=== PATIENT | male | born 1975 | race Hispanic/Latino ===

== ENCOUNTER → 2023-08-06 06:21 | Outpatient (REF) | payer OTHER, SELFPAY ==
[2023-08-06 11:02] LABS: ALT (SGPT) 89 U/L (0-50); AST (SGOT) 51 U/L (17-59); Albumin 4.2 g/dl (3.5-5.0); Alkaline Phosphatase 120 U/L (38-126); Blood Urea Nitrogen 19 mg/dl (9-20); Calcium 9.4 mg/dl (8.4-10.2); Carbon Dioxide 28 mmol/L (22-30); Chloride 104 mmol/L (98-107); Glucose 126 mg/dl (70-99); HDL Cholesterol 30 mg/dl; LDL Cholesterol, Calculated 96 mg/dl; Sodium 138 mmol/L (135-145); Total Bilirubin 0.8 mg/dl (0.2-1.3); Total Cholesterol 194 mg/dl (50-199); Total Protein 7.4 g/dl (6.3-8.2); Triglyceride 341 mg/dl (10-149); Very Low Density Lipoprotein 68 mg/dl (0-30); eGFR > 60.00
[2023-08-06 11:04] LABS: Urine Albumin Negative (Neg - Trace); Urine Bilirubin Negative (Negative); Urine Character Clear (Clear); Urine Color Yellow; Urine Glucose Negative (Negative); Urine Ketone Negative (Negative); Urine Leukocyte Negative (Negative); Urine Nitrite Negative (Negative); Urine Occult Blood Negative (Negative); Urine Urobilinogen Negative (Neg - 1+)
[2023-08-06 11:14] LABS: % Basophils 0.5 % (0-2); % Eosinophils 1.8 % (0-6); % Immature Granulocytes 0.3 % (0-0.5); % Lymphocytes 37.5 % (20.5-51.1); % Monocytes 7.9 % (1.7-9.3); Absolute Basophils 0.1 10^3/uL (0-0.2); Absolute Eosinophils 0.2 10^3/uL (0-0.7); Absolute Lymphocytes 4.8 10^3/uL (1.2-3.4); Absolute Neutrophils 6.6 10^3/uL (1.4-6.5); Hematocrit 51.7 % (39.0-52.0); Hemoglobin 17.3 g/dL (13.0-18.0); Mean Corp Hgb Conc. 33.5 g/dL (33.0-37.0); Mean Corpuscular Hgb 29.3 pg (27.0-31.0); Mean Corpuscular Volume 87.5 fL (80.0-94.0); Mean Platelet Volume 12.5 fL (7.4-10.4); Nucleated Red Blood Cells % 0 % (-); Platelet Count 224 10^3/uL (130-400); Red Blood Cell Count 5.91 10^6/uL (4.70-6.10); Red Cell Dist. Width 12.8 % (11.5-14.5); Reticulocyte Count 1.9 % (0.4-2.8); White Blood Cell Count 12.8 10^3/uL (4.8-10.8)
[2023-08-06 11:15] LABS: Potassium 4.1 mmol/L (3.5-5.1)
[2023-08-06 13:58] LABS: Glycohemoglobin (HgbA1c) 6.9 % (4.0-5.6)
[2023-08-10 19:22] LABS: FIT-Fecal Occult Blood Interp Negative
== END ==
LOC: CLINIC 06:21
PROVIDERS: ATTENDING PHYSICIAN Internal Medicine
DX: I10 Essential (primary) hypertension (principal)
CPT/HCPCS: 36415; 80053; 80061; 81003; 83036; 83520; 85025; 85045

== ENCOUNTER → 2023-10-20 06:20 | Outpatient (REF) | payer OTHER, SELFPAY ==
[2023-10-20 09:40] LABS: Albumin 4.1 g/dl (3.5-5.0); Chloride 106 mmol/L (98-107)
[2023-10-20 09:51] LABS: ALT (SGPT) 34 U/L (0-50); AST (SGOT) 34 U/L (17-59); Alkaline Phosphatase 99 U/L (38-126); Blood Urea Nitrogen 23 mg/dl (9-20); Calcium 9.4 mg/dl (8.4-10.2); Carbon Dioxide 24 mmol/L (22-30); Glucose 95 mg/dl (70-99); Potassium 4.1 mmol/L (3.5-5.1); Sodium 141 mmol/L (135-145); Total Bilirubin 0.7 mg/dl (0.2-1.3); eGFR > 60.00
== END ==
LOC: CLINIC 06:20
PROVIDERS: ATTENDING PHYSICIAN Nurse Practitioner Family
DX: R73.9 Hyperglycemia, unspecified (principal)
CPT/HCPCS: 36415; 80053; 83036

== ENCOUNTER → 2024-03-03 06:08 | Outpatient (REF) | payer OTHER, SELFPAY ==
[2024-03-03 11:16] LABS: Glycohemoglobin (HgbA1c) 5.7 % (4.0-5.6)
== END ==
LOC: CLINIC 06:08
PROVIDERS: ATTENDING PHYSICIAN Internal Medicine
DX: R73.03 Prediabetes (principal)
CPT/HCPCS: 36415; 83036